=== PATIENT | male | born 1945 | race Asian ===

== ENCOUNTER 2018-10-05 11:26 | Inpatient (IN) | payer MEDICARE, OTHER ==
[~2018-10-05 11:26] MED LIST: KNEE PAIN COCKTAIL VANCO INJ; LACTATED RINGER'S 1,000 ML IV*
[2018-10-05] MEDS ORDERED: KNEE PAIN COCKTAIL VANCO INJ (12:30)
[2018-10-05] MEDS: ONDANSETRON 4 MG INJ IV ×4 (12:30→21:14)
[2018-10-05] MEDS: DEXAMETHASONE 4 MG/ML 1 ML INJ IV ×2 (12:30)
[2018-10-05] MEDS: TRANEXAMIC ACID 1GM/100ML(PMX) 100 ML PRE-OP IVPB (12:30)
[2018-10-05] MEDS: LANSOPRAZOLE 30 MG CAP PO ×2 (12:30→12:32)
[2018-10-05] MEDS: ACETAMINOPHEN 500 MG TAB PO ×2 (12:30→18:33)
[2018-10-05] MEDS: oxyCODONE (CR) 10 MG TAB [oxyCONTIN] PO ×2 (12:30→12:32)
[2018-10-05] MEDS ORDERED: CEFAZOLIN 2 GM/50 ML (PMX) 50 ML IVPB (12:30)
[2018-10-05] MEDS: TRANEXAMIC ACID 1GM/100ML(PMX) 100 ML AT CLOSING IVPB (12:30)
[2018-10-05] MEDS ORDERED: ONDANSETRON 4 MG INJ IV (13:00)
[2018-10-05] MEDS ORDERED: ALBUTEROL 0.083% (NEB) 2.5 MG/3 ML AMP HHN (13:00)
[2018-10-05] MEDS ORDERED: MEPERIDINE 25 MG INJ IV (13:00)
[2018-10-05] MEDS ORDERED: DIPHENHYDRAMINE 50 MG INJ IV (13:00)
[2018-10-05] MEDS ORDERED: METOCLOPRAMIDE 10 MG INJ IV (13:00)
[2018-10-05] MEDS ORDERED: FENTAnyl 50 MCG/ML VIAL IV ×2 (13:00)
[2018-10-05] MEDS ORDERED: TRANEXAMIC ACID 1 GM/100 ML (PMX) (13:00)
[2018-10-05] MEDS ORDERED: HYDROmorphONE 1 MG/5 ML IV SYRINGE IV (13:00)
[2018-10-05] MEDS ORDERED: morphine SULFATE/PF (10 MG/10 ML) INJ (13:02)
[2018-10-05] MEDS ORDERED: MIDAZOLAM 1 MG/ML 2 ML INJ (13:02)
[2018-10-05] MEDS: CEFAZOLIN 1 GM/50 ML (PMX) 50 ML IVPB (13:31)
[2018-10-05] MEDS: POLYMYXIN B 500000 UNIT INJ (14:11)
[2018-10-05] MEDS: BACITRACIN 50000 UNITS INJ (14:11)
[2018-10-05] MEDS ORDERED: SUCCINYLCHOLINE CHLORIDE 100 MG/5 ML SYG IV (15:20)
[2018-10-05] MEDS ORDERED: LIDOCAINE 100 MG SYRINGE (15:20)
[2018-10-05] MEDS ORDERED: CEFAZOLIN 1 GM INJ (15:20)
[2018-10-05] MEDS ORDERED: PROPOFOL 20 ML (15:20)
[2018-10-05] MEDS ORDERED: SUGAMMADEX SODIUM 200 MG/2 ML VIAL IV (15:20)
[2018-10-05] MEDS ORDERED: ROCURONIUM 50 MG INJ (15:20)
[2018-10-05] MEDS ORDERED: ROPIVACAINE 0.5 % 30 ML VIAL (15:24)
[2018-10-05] MEDS ORDERED: NALOXONE (0.4 MG/ML) INJ IV (16:00)
[2018-10-05] MEDS ORDERED: NACL 0.9% 3 ML SYG IV (16:00)
[2018-10-05] MEDS: TRANEXAMIC ACID 1GM/100ML(PMX) 100 ML INTRA-OP X1 IVPB (16:24)
[2018-10-05] MEDS: TRANEXAMIC ACID 1GM/100ML(PMX) 100 ML PRE-OP X1 IVPB (16:24)
[2018-10-05] MEDS: LACTATED RINGER'S 1,000 ML IV* (16:28)
[2018-10-05] MEDS ORDERED: DOCUSATE SODIUM 100 MG CAP PO (16:33)
[2018-10-05] MEDS: CEFAZOLIN 2 GM/50 ML (PMX) 50 ML IVPB (16:57)
[2018-10-05] MEDS: DOCUSATE SODIUM 100 MG CAP PO (16:58)
[2018-10-05] MEDS: GABAPENTIN 100 MG CAP PO (21:14)
[2018-10-06] MEDS: CEFAZOLIN 2 GM/50 ML (PMX) 50 ML IVPB ×2 (01:04→09:14)
[2018-10-06] MEDS: ONDANSETRON 4 MG INJ IV ×2 (03:41→09:14)
[2018-10-06 05:06] LABS: ADD MAN DIFF? NO
[2018-10-06 05:14] LABS: BASOPHILS % 0.1 % (0.0-2.0); HEMATOCRIT 39.7 % (42.0-52.0); HEMOGLOBIN 13.1 g/dl (14.0-18.0); LYMPHOCYTES # 0.9 10^3/ul (0.8-2.9); LYMPHOCYTES % 9.2 % (15.0-51.0); MEAN CORPUSCULAR HEMOGLOBIN 28.4 pg (29.0-33.0); MEAN CORPUSCULAR VOLUME 85.9 fl (82.0-101.0); NEUTROPHIL # 7.9 10^3/ul (1.6-7.5); NEUTROPHILS % 80.4 % (39.0-77.0); PLATELET COUNT 184 10^3/UL (140-415); RED BLOOD COUNT 4.62 10^6/ul (4.70-6.10)
[2018-10-06 05:14] LABS: WHITE BLOOD COUNT 9.9 10^3/ul (4.8-10.8)
[2018-10-06 05:49] LABS: ANION GAP 6 (5-13); BLOOD UREA NITROGEN 19 mg/dl (7-20); CALCIUM 8.5 mg/dl (8.4-10.2); CARBON DIOXIDE 27 mmol/L (21-31); CHLORIDE 108 mmol/L (97-110); CREATININE 0.81 mg/dl (0.61-1.24); GLUCOSE 150 mg/dl (70-220); POTASSIUM 4.8 mmol/L (3.5-5.1); SODIUM 141 mmol/L (135-144)
[2018-10-06] MEDS: ASPIRIN (EC) 81 MG TAB PO ×2 (09:14→20:29)
[2018-10-06] MEDS: CELECOXIB 100 MG CAP PO ×2 (09:14→20:29)
[2018-10-06] MEDS: GABAPENTIN 100 MG CAP PO ×3 (09:14→20:29)
[2018-10-06 12:16] LABS: CHOL/HDL RATIO 2.1 RATIO; HDL CHOLESTEROL 34 mg/dl (31-75); LDL CHOLESTEROL,CALCULATED 31 mg/dl; TRIGLYCERIDES 46 mg/dl (0-149)
[2018-10-06 12:16] LABS: CHOLESTEROL 74 mg/dl (100-200)
[2018-10-06 12:54] LABS: HEMOGLOBIN A1C 5.6 % (0-5.9)
[2018-10-06] MEDS: KETOROLAC 15 MG INJ IV (14:44)
[2018-10-06] MEDS: HYDROCODONE/APAP (5/325) TAB PO ×2 (17:31→23:20)
[2018-10-06] MEDS: ATORVASTATIN 20 MG TAB PO (20:29)
[2018-10-07] MEDS: oxyCODONE 5 MG TAB PO ×3 (04:11→19:00)
[2018-10-07 05:16] LABS: ADD MAN DIFF? NO
[2018-10-07 05:33] LABS: WHITE BLOOD COUNT 7.7 10^3/ul (4.8-10.8)
[2018-10-07 05:33] LABS: BASOPHILS % 0.5 % (0.0-2.0); EOSINOPHILS # 0.2 10^3/ul (0.0-0.5); EOSINOPHILS % 2.9 % (0.0-7.0); HEMATOCRIT 33.6 % (42.0-52.0); HEMOGLOBIN 11.2 g/dl (14.0-18.0); LYMPHOCYTES # 1.4 10^3/ul (0.8-2.9); MEAN CORPUSCULAR HGB CONC 33.3 g/dl (32.0-37.0); MEAN PLATELET VOLUME 9.1 fl (7.4-10.4); MONOCYTE # 1.2 10^3/ul (0.3-0.9); MONOCYTES % 14.9 % (0.0-11.0); NEUTROPHIL # 4.9 10^3/ul (1.6-7.5); NEUTROPHILS % 63.4 % (39.0-77.0); PLATELET COUNT 165 10^3/UL (140-415); RED BLOOD COUNT 3.86 10^6/ul (4.70-6.10); RED CELL DISTRIBUTION WIDTH 13.2 % (11.5-14.5)
[2018-10-07] MEDS: PANTOPRAZOLE (EC) 40 MG TAB PO (05:48)
[2018-10-07 06:11] LABS: ANION GAP 6 (5-13); BLOOD UREA NITROGEN 23 mg/dl (7-20); CALCIUM 8.3 mg/dl (8.4-10.2); CARBON DIOXIDE 27 mmol/L (21-31); CHLORIDE 107 mmol/L (97-110); CREATININE 0.81 mg/dl (0.61-1.24); GLUCOSE 112 mg/dl (70-220); POTASSIUM 4.3 mmol/L (3.5-5.1); SODIUM 140 mmol/L (135-144)
[2018-10-07] MEDS: ASPIRIN (EC) 81 MG TAB PO ×2 (09:02→20:08)
[2018-10-07] MEDS: CELECOXIB 100 MG CAP PO ×2 (09:02→20:08)
[2018-10-07] MEDS: GABAPENTIN 100 MG CAP PO ×3 (09:03→20:08)
[2018-10-07] MEDS: HYDROCODONE/APAP (5/325) TAB PO ×3 (10:54→21:04)
[2018-10-07] MEDS: ATORVASTATIN 20 MG TAB PO (20:08)
[2018-10-07] MEDS: METOPROLOL 25 MG TAB PO (20:09)
[2018-10-08 05:49] LABS: ADD MAN DIFF? NO
[2018-10-08 06:00] LABS: BASOPHILS % 0.4 % (0.0-2.0); EOSINOPHILS # 0.6 10^3/ul (0.0-0.5); EOSINOPHILS % 7.4 % (0.0-7.0); HEMOGLOBIN 11.2 g/dl (14.0-18.0); LYMPHOCYTES # 1.6 10^3/ul (0.8-2.9); LYMPHOCYTES % 21.2 % (15.0-51.0); MEAN CORPUSCULAR HEMOGLOBIN 29.1 pg (29.0-33.0); MEAN CORPUSCULAR HGB CONC 32.9 g/dl (32.0-37.0); MEAN CORPUSCULAR VOLUME 88.3 fl (82.0-101.0); MEAN PLATELET VOLUME 9.1 fl (7.4-10.4); MONOCYTES % 12.4 % (0.0-11.0); NEUTROPHIL # 4.5 10^3/ul (1.6-7.5); NEUTROPHILS % 58.2 % (39.0-77.0); PLATELET COUNT 166 10^3/UL (140-415); RED BLOOD COUNT 3.85 10^6/ul (4.70-6.10); RED CELL DISTRIBUTION WIDTH 13.1 % (11.5-14.5)
[2018-10-08 06:00] LABS: WHITE BLOOD COUNT 7.7 10^3/ul (4.8-10.8)
[2018-10-08] MEDS: PANTOPRAZOLE (EC) 40 MG TAB PO (06:22)
[2018-10-08] MEDS: HYDROCODONE/APAP (5/325) TAB PO (06:23)
[2018-10-08 06:46] LABS: ANION GAP 5 (5-13); BLOOD UREA NITROGEN 18 mg/dl (7-20); CALCIUM 8.3 mg/dl (8.4-10.2); CARBON DIOXIDE 30 mmol/L (21-31); CHLORIDE 105 mmol/L (97-110); GLUCOSE 115 mg/dl (70-220); POTASSIUM 4.3 mmol/L (3.5-5.1); SODIUM 140 mmol/L (135-144)
[2018-10-08] MEDS: ASPIRIN (EC) 81 MG TAB PO (09:12)
[2018-10-08] MEDS: GABAPENTIN 100 MG CAP PO ×2 (09:12→12:55)
[2018-10-08] MEDS: CELECOXIB 100 MG CAP PO (09:13)
[2018-10-08] MEDS: KETOROLAC 15 MG INJ IV (09:17)
[2018-10-08] MEDS: METOPROLOL 25 MG TAB PO (09:17)
== END 2018-10-08 17:30 | disposition home health service (06) | DRG 470 ==
LOC: SDS 11:26 → REC 15:49 → MS1 17:55
PROC: 0SRC069 Replacement of Right Knee Joint with Oxidized Zirconium on Polyethylene Synthetic Substitute, Cemented, Open Approach (ICD-10-PCS; principal; 2018-10-05 13:03)
DX: M17.11 Unilateral primary osteoarthritis, right knee (principal); E78.00 Pure hypercholesterolemia, unspecified; Z68.30 Body mass index [BMI] 30.0-30.9, adult
CPT/HCPCS: 73560; 80048; 80061; 83036; 85025; 88304; 88311; 97110; 97116; 97161; 97530